=== PATIENT | female | born 1995 | race Caucasian/White ===

== ENCOUNTER 2024-08-07 13:36 | Day surgery (SDC) | payer OTHER ==
[2024-08-07] MEDS ORDERED: hydrALAZINE 20 MG/ML VIAL SLOW IVP PRN (14:47)
[2024-08-07 14:53] VITALS: BMI 28.1
[2024-08-07 15:12] LABS: Fetal Membranes Rupture No Membranes Rupture (No Rupture)
== END 2024-08-07 17:44 | disposition home or self-care (01) ==
LOC: CSHLD/OP 13:36
PROVIDERS: ATTEND Student in an Organized Health Care Education/Training Program
DX: O36.8130 Decreased fetal movements, third trimester, not applicable or unspecified (principal); O99.891 Other specified diseases and conditions complicating pregnancy; Q79.60 Ehlers-Danlos syndrome, unspecified; Z3A.33 33 weeks gestation of pregnancy; Z88.0 Allergy status to penicillin; Z91.018 Allergy to other foods; Z79.899 Other long term (current) drug therapy
CPT/HCPCS: 76819; 84112; 87480; 87510; 87660

== ENCOUNTER 2024-08-31 01:17 | Day surgery (SDC) | payer OTHER ==
[2024-08-31] MEDS ORDERED: hydrALAZINE 20 MG/ML VIAL SLOW IVP PRN (01:42)
[2024-08-31 02:01] VITALS: BMI 29.8
== END 2024-08-31 04:28 | disposition home or self-care (01) ==
LOC: CSHLD/OP 01:17
PROVIDERS: ATTEND Student in an Organized Health Care Education/Training Program
DX: O47.03 False labor before 37 completed weeks of gestation, third trimester (principal); Z3A.36 36 weeks gestation of pregnancy; Z91.040 Latex allergy status; Z88.0 Allergy status to penicillin; Z91.018 Allergy to other foods
CPT/HCPCS: 99283

== ENCOUNTER 2024-09-03 21:31 | Day surgery (SDC) | payer OTHER ==
[2024-09-03] MEDS ORDERED: hydrALAZINE 20 MG/ML VIAL SLOW IVP PRN (21:48)
[2024-09-03 21:57] VITALS: BMI 29.8
[2024-09-03 22:28] LABS: Fetal Membranes Rupture No Membranes Rupture (No Rupture)
== END 2024-09-03 23:45 | disposition home or self-care (01) ==
LOC: CSHLD/OP 21:31
PROVIDERS: ATTEND Student in an Organized Health Care Education/Training Program
DX: O47.1 False labor at or after 37 completed weeks of gestation (principal); O36.8130 Decreased fetal movements, third trimester, not applicable or unspecified; O23.593 Infection of other part of genital tract in pregnancy, third trimester; N89.8 Other specified noninflammatory disorders of vagina; Z3A.37 37 weeks gestation of pregnancy; Z91.040 Latex allergy status; Z88.0 Allergy status to penicillin; Z91.018 Allergy to other foods; Z79.899 Other long term (current) drug therapy
CPT/HCPCS: 76819; 84112; 87480; 87510; 87660; 99285

== ENCOUNTER 2024-09-11 00:52 | Inpatient (IN) | payer OTHER ==
[2024-09-12] MEDS ORDERED: Carboprost 250 MCG/ML AMP IM PRN (01:24)
[2024-09-12] MEDS ORDERED: Lidocaine 1% (PF) 30 ML VIAL SC PRN (01:24)
[2024-09-12] MEDS ORDERED: Methylergonovine 0.2 MG/ML VIAL IM PRN (01:24)
[2024-09-12] MEDS ORDERED: Diphenoxylate HCl/Atropine Tablet PO PRN ×2 (01:24)
[2024-09-12] MEDS ORDERED: Tranexamic Acid 1,000 MG/10 ML VIAL IVP PRN (01:24)
[2024-09-12] MEDS ORDERED: Ondansetron PF 4 MG/2 ML Vial IVP PRN ×3 (01:24→21:07)
[2024-09-12] MEDS ORDERED: Ibuprofen 800 MG TAB PO PRN (01:24)
[2024-09-12] MEDS ORDERED: hydrALAZINE 20 MG/ML VIAL SLOW IVP PRN ×2 (01:24→21:07)
[2024-09-12] MEDS ORDERED: Oxytocin 30 units/NS 500 ML 500 ML IV SCH (02:30)
[2024-09-12 03:12] LABS: Hematocrit 30.5 % (34.9-44.5); Hemoglobin 9.8 g/dL (12.0-15.5); Mean Corpuscular Hemoglobin 27.5 pg (27.0-33.0); Mean Corpuscular Volume 85.4 fL (81.6-98.3); Platelet Count 180 10x3/uL (150-450); Red Blood Cell (RBC) Count 3.57 10x6/uL (3.90-5.03); White Blood Cell (WBC) Count 13.57 10x3/uL (3.5-10.5)
[2024-09-12 03:55] LABS: Syphilis Antibody Index 0.08 S/CO (<1.00 Non-Reactive)
[2024-09-12 03:57] LABS: Hep B Surf Ag - L&D Non-Reactive S/CO (NonReactive)
[2024-09-12 07:34] VITALS: BMI 32.5
[2024-09-12] MEDS: Oxytocin 30 units/NS 500 ML 500 ML IV SCH (11:24)
[2024-09-12] MEDS ORDERED: Calcium Carbonate 500 MG ChewTAB PO PRN (13:13)
[2024-09-12] MEDS: fentaNYL/Ropivacaine Epidural 100 ML ONE (15:15)
[2024-09-12] MEDS ORDERED: diphenhydrAMINE 50 MG/ML VIAL IVP PRN (15:21)
[2024-09-12] MEDS ORDERED: Acetaminophen 325 MG TAB PO PRN (15:21)
[2024-09-12] MEDS ORDERED: fentaNYL 2 mcg/Ropivacaine 0.2% Epidural 100 ML CADD EPIDURAL SCH (15:30)
[2024-09-12] MEDS ORDERED: Communication Order-Pharmacy FS SCH (15:30)
[2024-09-12] MEDS ORDERED: Benzocaine-Menthol 82.5 ML CAN TOP PRN (21:07)
[2024-09-12] MEDS ORDERED: Lanolin Ointment 7 GM TUBE TOP PRN (21:07)
[2024-09-12] MEDS ORDERED: HYDROcodone/Acetaminophen 5/325 mg Tablet PO PRN (21:07)
[2024-09-12] MEDS ORDERED: diphenhydrAMINE 25 MG CAP PO PRN (21:07)
[2024-09-12] MEDS ORDERED: Milk Of Magnesia 30 ML UDCUP PO PRN (21:07)
[2024-09-12] MEDS ORDERED: Preparation H Ointment 28 GM TUBE PR PRN (21:07)
[2024-09-12] MEDS ORDERED: Bisacodyl 10 MG SUPP PR PRN (21:07)
[2024-09-12] MEDS: Ibuprofen 800 MG TAB PO SCH (21:28)
[2024-09-13] MEDS: Witch Hazel 100 PAD JAR TOP PRN (00:56)
[2024-09-13] MEDS: Ferrous Sulfate 325 MG TAB PO SCH (07:58)
[2024-09-13] MEDS: Measles/Mumps/Rubella 10 MCG/0.5 ML VIAL SC ONE (17:51)
[2024-09-13] MEDS: Boostrix 0.5 ML (Tdap) VIAL (>/=7 yrs of age) IM ONE (17:51)
[2024-09-13 20:27] VITALS: BP 116/67; TEMP 97.6
== END 2024-09-13 20:45 | disposition home or self-care (01) | DRG 807 ==
LOC: EDSTATUS 01:30 → CSHLD 09-12 01:31 → CSHPP 09-12 22:05
PROVIDERS: ADMIT Student in an Organized Health Care Education/Training Program; ATTEND Student in an Organized Health Care Education/Training Program
PROC: 10E0XZZ Delivery of Products of Conception, External Approach (ICD-10-PCS; principal; 2024-09-12)
DX: O80 Encounter for full-term uncomplicated delivery (principal); Z37.0 Single live birth; Z3A.38 38 weeks gestation of pregnancy; Z88.0 Allergy status to penicillin
CPT/HCPCS: 51702; 85027; 86780; 86850; 86900; 86901; 87340; 99285; J2590